=== PATIENT | female | born 1980 | race Caucasian/White ===

== ENCOUNTER 2016-11-20 14:22 | Emergency (ER) | payer MEDICAID ==
[~2016-11-20] VITALS: Ht 154.9 cm; Wt 63.0 kg
[~2016-11-20 14:22] MED LIST: ONDA1TAB16 PO
[2016-11-20 14:28] VITALS: BP 125/72; PULSE 82; RESP 20; TEMP 98.1; O2SAT 99
--- NOTE | 2016-11-20 14:51 | PD ---
HPI Chief Complaint: Skin Problem Time Seen by Provider: 14:51 Travel History International Travel<30 days: No Contact w/Intl Traveler<30days: No Traveled to known affect area: No History of Present Illness HPI 36-year-old female presents to ED for evaluation of 5 day history of swelling, redness and pain of left upper lip infection. The patient states that she initially has a piercing done couple months ago, that became infected and she left the jewelry in and took antibiotics. She states her symptoms improved until 5 days ago. She denies fever, chills, radiation of the pain, difficulties opening, closing the mouth, difficulty swallowing her own secretions. Denies chronic health problems, takes no daily medications. 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) Social History Alcohol Use: No Tobacco Use: Yes (09/12 ppd) Substance Use: No Allergies-Medications (Allergen,Severity, Reaction): Coded Allergies: Morphine (Verified Allergy, Severe, Rash, 03/31/15) Penicillin (Verified Allergy, Severe, Nausea/Vomiting, 03/31/15) "ALL CILLINS" Toradol (Verified Allergy, Severe, Nausea/Vomiting, 03/31/15) Reported Meds & Prescriptions Reported Meds & Active Scripts Active Lidocaine Viscous Liq 2 % Liqd 5 Ml SWISH-SWAL QID PRN Naproxen 500 Mg Tab 500 Mg PO BID Bactrim DS (Sulfamethoxazole-Trimethoprim) 800-160 Mg Tab 1 Tab PO BID Zofran Tab (Ondansetron HCl) 4 Mg Tab 4 Mg PO Q6 PRN Review of Systems Except as stated in HPI: all other systems reviewed are Neg Physical Exam Narrative GENERAL: Well-nourished, well-developed anxious white female in no acute distress. SKIN: Warm and dry. The patient has a beauty brendan piercing above the left lip. There is a small williams stud surrounded by a 1-2 cm area of tender, erythematous warmth. There is a small amount of purulent drainage. Inspection inside the mouth reveals a single puncture with no jewelry protruding. HEAD: Normocephalic. Atraumatic. EYES: No scleral icterus. No injection or drainage. PERRLA. EOMI. ENT: Pearly sharif tympanic membranes bilaterally. Nasal mucosa is moist. Oropharynx without erythema, edema or exudate. Airway patent. Uvula midline. DENTAL: Poor dentition overall. NECK: Supple, trachea midline. No JVD or lymphadenopathy. CARDIOVASCULAR: Regular rate and rhythm without murmurs, gallops, or rubs. No carotid bruits. 2+ DP and radial pulses bilaterally. RESPIRATORY: Breath sounds clear and equal bilaterally. No accessory muscle use. GASTROINTESTINAL: Abdomen soft, non-tender, nondistended. + Bowel sounds MUSCULOSKELETAL: No cyanosis, or edema. Full, active range of motion. Strength 5/5. Neurovascularly intact. BACK: Nontender without obvious deformity. No CVA tenderness. Data Data Last Documented VS Vital Signs Date Time Temp Pulse Resp B/P Pulse Ox O2 Delivery O2 Flow Rate FiO2 11/20/16 14:28 98.1 82 20 125/72 99 Orders Lidocaine 1% Inj (50 Ml) (Xylocaine 1% I (11/20/16 15:15) MDM Medical Decision Making Medical Screen Exam Complete: Yes Emergency Medical Condition: Yes Differential Diagnosis Abscess versus cellulitis versus foreign body versus other Narrative Course 36-year-old female presents to ED for evaluation of 5 day history of swelling, redness and pain of left upper lip infection. The patient states that she initially has a piercing done couple months ago, that became infected and she left the jewelry in and took antibiotics. She states her symptoms improved until 5 days ago. She denies fever, chills, radiation of the pain, difficulties opening, closing the mouth, difficulty swallowing her own secretions. Vitals reviewed. His vital exam reveals a very marked piercing just above the left lip. There is a williams stud in place and the piercing with a 1-2 cm area of tender, warm erythema surrounding it. Inside the mouth the opening of the piercing is visible but no jewelry is seen. Foreign body removal was performed. Please see my procedure note for details. Patient was prescribed Bactrim DS twice a day 7 days, Magic mouthwash and naproxen as needed for pain. Instructed to take all medication as prescribed, do not reinsert the body jewelry, follow up with the primary care provider. We discussed risks to return to the ED. She indicated understanding of the instructions. She stable and discharged home. Procedures Procedure Narrative Foreign body removal: The area was injected with 2 cc of 1% lidocaine plain. The external portion of the body jewelry was grasped with a hemostat. The fistula created by the piercing was widened with an 11 blade. Pressure was applied which brought the secondary piece of the body jewelry in to view. This was grasped with a hemostat. The 2 hemostats are rotated in opposite directions and the body jewelry was removed. Patient tolerated the procedure well. She is instructed to keep the wound clean and dry. Diagnosis Primary Impression: Pierced lip infection Referrals: Primary Care Physician Patient Instructions: Cellulitis (ED), General Instructions Additional Instructions: Rest, hydrate. You may bathe normally. After bathing pat of wound dry. Allow the wound to air dry for 10-15 minutes. Apply a thin layer of antibiotic ointment and a clean, dry dressing. Take the antibiotics as they are prescribed, even if your symptoms resolve. 60 mg ibuprofen up to 3 times a day as needed. Viscous lidocaine swish and spit 3-4 times a day as needed for pain. Follow-up with your primary care provider this week Return to the ED for any urgent or emergent medical condition. Med/Other Pt SpecificInfo: Prescription(s) given Scripts Lidocaine Viscous Liq 2 % Liqd5 Ml SWISH-SWAL QID PRN (PAIN) #1 BOTTLE Ref 0 Prov:Wesley Mckeon MD 11/20/16 Naproxen 500 Mg [id number] Mg PO BID #10 TAB Ref 0 Prov:Wesley Mckeon MD 11/20/16 Sulfamethoxazole-Trimethoprim (Bactrim DS)800-160 Mg Tab1 Tab PO BID #14 TAB Ref 0 Prov:Wesley Mckeon MD 11/20/16 Disposition: 01 DISCHARGE HOME Condition: Stable Katy Shetty Nov 20, 2016 14:51
[2016-11-20] MEDS ORDERED: LIDOCAINE HCL 1% 50 ML VIAL INFIL ONE (15:15)
[2016-11-20] MEDS ORDERED: LIDO1SOL8 SWISH-SWAL (15:48)
[2016-11-20] MEDS ORDERED: NAPR500T PO (15:48)
[2016-11-20] MEDS ORDERED: BACT800T5 PO (15:48)
== END 2016-11-20 15:59 | disposition home or self-care (01) ==
LOC: PHEFT 14:22
DX: S00.551A Superficial foreign body of lip, initial encounter (principal); F17.210 Nicotine dependence, cigarettes, uncomplicated; W45.8XXA Other foreign body or object entering through skin, initial encounter; Y93.9 Activity, unspecified; Y92.9 Unspecified place or not applicable; Y99.9 Unspecified external cause status
CPT/HCPCS: 10120